=== PATIENT | male | born 1985 | race Caucasian/White ===

== ENCOUNTER 2016-05-30 11:09 | Emergency (ER) | payer MEDICARE, MEDICAID ==
[~2016-05-30] VITALS: Ht 195.6 cm; Wt 86.2 kg
[2016-05-30] MEDS ORDERED: IBUPROFEN 400 MG TABLET ONE (11:21)
--- NOTE | 2016-05-30 11:21 | NUR ---
PT BIB SELF C/O EPIGASTRIC "UPPER STOMACH" PAIN THAT IS WORSE DURING MOVEMENT X1 DAY. DENIES N/V/D. PT REPORTS HE HAS HAD PAIN LIKE THIS BEFORE AND IT WAS NOT CARDIAC RELATED. NAD NOTED. RESP EVEN UNLABORED. SKIN WARM NONDIAPHORETIC. VSS. IN ER BED 09. MD AT BEDSIDE.
[2016-05-30] MEDS ORDERED: IBUPROFEN 400 MG TABLET PO ONE (11:30)
--- NOTE | 2016-05-30 12:04 | NUR ---
Patient discharged to home in stable condition. Written and verbal after care instructions given. Patient verbalizes understanding of instruction. ambulatory with steady gait. VSS. NAD noted.
[2016-05-30 12:33] VITALS: BP 112/62
== END 2016-05-30 12:36 | disposition home or self-care (01) ==
LOC: EDUNIT# 11:09 → ER 11:11
DX: M94.0 Chondrocostal junction syndrome [Tietze] (principal); I10 Essential (primary) hypertension; F17.200 Nicotine dependence, unspecified, uncomplicated; G25.81 Restless legs syndrome; Z88.8 Allergy status to other drugs, medicaments and biological substances
CPT/HCPCS: 71010-TC; A4606; Z7610